=== PATIENT | female | born 1980 | race Caucasian/White ===

== ENCOUNTER 2017-01-27 17:34 | Emergency (ER) | payer OTHER ==
[2017-01-27 17:55] VITALS: BMI 27.7
[2017-01-27] MEDS ORDERED: Betamethasone Soluspan 30 mg/5mL Inj Susp IM ONE (19:00)
--- NOTE | 2017-01-28 08:52 | OBHP ---
Datetime: 01/27/2017 18:46 IP Adm Impression: , intrauterine IP Admit Plan: Observation/Evaluation Admit Comment, IP Provider: CC: "vaginal bleeding" HPI: 37 YO IUP 34.6 weeks (via LMP) with no sig PMH, presents to [facility] for vaginal bleeding. P er patient, she noticed some dark blood on her panty linear which prompted her to come to ED. Additio vee, she also noticed that the baby was not moving as well as she was previously, but that resolved soon after. +FM, -ROM, - contractions, some spotting noted. 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 Allergies: NKDA Medications: PNV PE: VS: stable, afebrile GEN: NAD Cardio: S1S2, no M/G/R Resp: clear vesicular sounds b/l Abdomen: gravid, NT, BS+ Ext: no edema, NT Cervix: 1cm dilated, baby is low. On speculum exam, white discharge is noted in the vaginal vault. monitor: HR: 130 with moderate variability; Category I. Assessment/Plan: 37 YO IUP 34.6 weeks (via LMP) with no sig PMH, presents to [facility] for spottin g. Pt is in NAD, VS stable, no contractions seen on monitor thus far. Continue to observe for signs o f contractions. - Monitoring -Observe and reassess Sylvia Lynn, PGY I OB[facility] ADDENDUM: pt seen _ examined by me. agree with above with following clarification cc: spotting of brownish blood. denies menstrual type bleeding, srom, cramps or ctxs. no coitus x _2wks i: threatened ptl p: d/w pt _ fob concern for ptd and betamethasone inject and indic's. pt declined betameth pt states she will f/u w/ dr donovan tomorrow and rediscuss betameth ptl precautions pelvic rest until term Pelvic Type - PN: Adequate Extremities - PN: Normal Abdomen - PN: Normal Back - PN: Not Done Breast - PN: Not Done Lungs - PN: Normal Heart - PN: Normal Thyroid - PN: Normal Neurologic - PN: Normal HEENT - PN: Normal General - PN: Normal FHR - Baseline A Provider: 130 Membranes, Provider: Intact Contraction Comments Provider: no Comments, ACOG Physical Exam: SSE: no blood in vagina; profuse yellow tinged nonodorous vag d/c +vaginal bleeding from speculum placement repeat exam no change @ 19:48 EGA AdmitDate IP: 34.6 IP Chief Complaint: Vaginal bleeding NICHD Variability Prov Fetus A: Moderate 6-25bpm NICHD Accel Fetus A IP Provider: 15X15 FHR Category Provider Fetus A: Category I NICHD Decel Fetus A IP Provider: None Dilatation, Provider: 1 Effacement, Provider: 60 Station, Provider: -3/technical report writer Genitourinary Exam: Normal DTRs - PN: Not Done
[2017-01-28 12:51] VITALS: BP 119/77; PULSE 81; O2SAT 98
== END 2017-01-27 19:58 | disposition home or self-care (01) ==
LOC: H.EROB2 17:34
DX: O47.03 False labor before 37 completed weeks of gestation, third trimester (principal); Z3A.34 34 weeks gestation of pregnancy; O26.853 Spotting complicating pregnancy, third trimester

== ENCOUNTER 2017-02-03 12:50 | Emergency (ER) | payer OTHER ==
[2017-02-03 13:43] VITALS: BMI 26.9
--- NOTE | 2017-02-03 15:18 | US ---
PROCEDURE: OB Pelvic Ultrasound HISTORY: Decrease movement COMPARISON: None available. FINDINGS: UTERUS: Gestational sac: Single intrauterine gestation. Heart rate: 142 bpm. Amniotic fluid index 18.94 centimeter. Date of delivery (Ultrasound estimated) : 03/04/2017 The breathing movement score is 2 the movement score is 2 the tones score is 2 and the amniotic fluid score is 2 with a total biophysical profile scoring of 8. The placenta seen at the anterior uterine wall. CERVIX: Closed. Long and closed. No cervical abnormality seen. RIGHT OVARY: Was not visualized LEFT OVARY: Was not visualized FREE FLUID: None. OTHER FINDINGS: None. IMPRESSION: biophysical profile scoring is 8. Amniotic fluid index is 18.9 centimeter.
--- NOTE | 2017-02-03 16:02 | OBHP ---
Datetime: 02/03/2017 13:49 IP Adm Impression: , intrauterine IP Admit Plan: Observation/Evaluation Admit Comment, IP Provider: CC: "Decrease FM" HPI: 37 YO IUP 35.6 weeks (via LMP) with no sig PMH, presents to [facility] for decrease FM. She no ticed the decrease FM in the last few weeks. Per pt, baby is not moving as well as she did previously , specially in the AM. She does endorse increase movement at night then at day. Pt was last seen in [facility] on 01/27/17 for VB. Pt followed up with Dr. Bush and was given PO flagyl for VB. Pt finished 6 day of abx and notes that the vaginal discharge has resolved. +FM, -ROM, - contractions, some no VB. 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 Allergies: NKDA Medications: PNV PE: VS: stable, afebrile GEN: NAD Cardio: S1S2, no M/G/R Resp: clear vesicular sounds b/l Abdomen: gravid, NT, BS+ Ext: no edema, NT Cervix: pt refused a cervical exam at this time monitor: 150 HR, moderate variability; Category I. No contractions noted. Assessment/Plan: 37 YO IUP 35.6 weeks (via LMP) with no sig PMH, presents to [facility] for decreas e FM. Pt is in NAD, VS stable, no contractions seen on monitor thus far. Continue to observe. -continue monitoring -follow up with [facility] -observe and reassess -discussed with pt about movement and keeping a kick count as advances Pt is seen and discussed with attending Dr. Beti Bailey, PGY I obh addendum: pt seen _ examined by me. agree with above assessmenta and plan with following additions. She reports good fm in evening and decreased fm in am. Pt states BV cx neg and verified by chart. She states d/c was very odorous and odor resolved with rx. She denies further episodes of vag blee ding o: zahida 18; vtx bpp 10/10 p: f/u in off thurs as sched'd as above. Pelvic Type - PN: Not Done Extremities - PN: Normal Abdomen - PN: Normal Back - PN: Not Done Breast - PN: Not Done Lungs - PN: Normal Heart - PN: Normal Thyroid - PN: Normal Neurologic - PN: Normal HEENT - PN: Normal General - PN: Normal FHR - Baseline A Provider: 150 IP Hx Assessment: The History has been Reviewed and is Current EGA AdmitDate IP: 35.6 Vital Signs Provider: Within Normal Limits IP Chief Complaint: Decreased movement NICHD Variability Prov Fetus A: Moderate 6-25bpm NICHD Accel Fetus A IP Provider: 15X15 FHR Category Provider Fetus A: Category I Genitourinary Exam: Not Done DTRs - PN: Normal
[2017-02-03 18:52] VITALS: BP 123/83; RESP 18; TEMP 98.5
== END 2017-02-03 14:35 | disposition home or self-care (01) ==
LOC: H.EROB 12:50 → H.EROB2 12:50
DX: O47.03 False labor before 37 completed weeks of gestation, third trimester (principal); Z3A.35 35 weeks gestation of pregnancy

== ENCOUNTER 2017-03-11 09:36 | Inpatient (IN) | payer OTHER ==
[2017-03-11] MEDS: Lactated Ringer's 1,000 ML IV SCH ×4 (10:00→16:57)
[2017-03-11 10:02] VITALS: BMI 27.8
--- NOTE | 2017-03-11 10:53 | OBADHP ---
Datetime: 03/11/2017 10:04 Admit Comment, IP Provider: 37yo G 1P0 IUP at 41w c/o ctx since 6:15am; no SROM; no VB; +FM...CTX q iiregualr but lasting 5m Prenatla care: CP: Dr Bush - chart rev'd Last sono for [facility] Feb 13 6lb 14oz PMH: denies PSH:denies PBOGYNH: G1 Allergy Amoxicillin PSOH; denies smoking ETOH drugs A; IUP at 40+w active labor AMA decliedn amnio PLAN: admit discussion with pt about labor, pain management, delivery and care plan rev'd Pelvic Type - PN: Adequate Extremities - PN: Normal Abdomen - PN: Normal Back - PN: Normal Breast - PN: Not Done Lungs - PN: Normal Heart - PN: Normal Thyroid - PN: Normal Neurologic - PN: Normal HEENT - PN: Normal General - PN: Normal Weight - Estimated: 9lb (Antelmo) Presentation-Admit: Vertex FHR - Baseline A Provider: 150 Amniotic Fluid Color, Provider: Clear Membranes, Provider: Ruptured Contraction Comments Provider: + Comments, ACOG Physical Exam: ROS: General: no weakness; no fatigue HEENT: no RAMIREZ; no visual dist CV: no palpitations; no no CP GI: no N/V no diarhea : no F/U/D MS: No joint pain Pool Provider: Positive IP Hx Assessment: The History has been Reviewed and is Current IP Chief Complaint: Uterine contractions; Suspected ruptured membranes NICHD Variability Prov Fetus A: Moderate 6-25bpm NICHD Accel Fetus A IP Provider: 15X15 FHR Category Provider Fetus A: Category I NICHD Decel Fetus A IP Provider: None Dilatation, Provider: 6-7 Effacement, Provider: 100 Station, Provider: -1 Genitourinary Exam: Normal DTRs - PN: Normal EGA AdmitDate IP: 41.0 IP Adm Impression: Term, intrauterine ; Active labor; Ruptured Membranes IP Admit Plan: Admit to unit; Initiate labor protocol Datetime: 02/03/2017 13:49 Vital Signs Provider: Within Normal Limits
[2017-03-11 11:02] LABS: BASO % 0.4 % (0.0-2.0); EOS % 0.4 % (0.0-4.0); HEMATOCRIT 37.6 % (34.0-47.0); LYMPH # 1.6 K/uL (1.0-4.3); LYMPH % 17.2 % (20.0-40.0); MEAN CELL VOLUME 88.6 fl (81.0-99.0); MEAN CORPUSCULAR HEMOGLOBIN 29.5 pg (27.0-31.0); MEAN CORPUSCULAR HGB CONC 33.3 g/dL (33.0-37.0); MEAN PLATELET VOLUME 8.2 fl (7.2-11.7); MONO # 0.6 K/uL (0.0-0.8); MONO % 6.4 % (0.0-10.0); NEUT # 7.2 K/uL (1.8-7.0); NEUT % 75.6 % (50.0-75.0); RED CELL DISTRIBUTION WIDTH 13.5 % (11.5-14.5); WHITE BLOOD COUNT 9.6 K/uL (4.8-10.8)
[2017-03-11] MEDS ORDERED: Oxytocin 30 units/LR 500ML 30 U/500 ML BAG IV ONE ×2 (11:34→16:52)
--- NOTE | 2017-03-11 13:11 | OBPN ---
Datetime: 03/11/2017 13:00 IP Progress Impression: Reassuring heart rate; Reactive non-stress test; Rupture of membranes IP Informed Consent Obtain: Vaginal Delivery; Risks, Benefits and Alternatives Discussed IP Progress Plan: Anesthesia consult FHR - Baseline A Provider: 120 Presentation-Admit: Vertex IP Progress Note Comment: She feels more CTX pain; unbearable...she has been pushing on and off for <1h. Difficult exam from moving around secondary to pain. Second stage of labor PLAN: will speak with anesthesia for poss epidural for pain relief NICHD Accel Fetus A IP Provider: 15X15 FHR Category Provider Fetus A: Category I NICHD Variability Prov Fetus A: Moderate 6-25bpm NICHD Decel Fetus A IP Provider: None Datetime: 03/11/2017 11:55 Dilatation, Provider: 10 Effacement, Provider: 100 Station, Provider: 0 Datetime: 03/11/2017 10:04 Pool Provider: Positive Membranes, Provider: Ruptured Amniotic Fluid Color, Provider: Clear Contraction Comments Provider: + Weight - Estimated: 9lb (Antelmo) Datetime: 02/03/2017 13:49 Vital Signs Provider: Within Normal Limits
[2017-03-11] MEDS ORDERED: Lidocaine 2% PF (10 ml) Amp ONE ×2 (13:12→18:21)
[2017-03-11] MEDS ORDERED: Fentanyl/Bupivacaine HCl 0 ML EPI ONE (13:12)
--- NOTE | 2017-03-11 16:25 | OBPN ---
Datetime: 03/11/2017 16:15 IP Progress Impression: Normal progression of labor; Reassuring heart rate IP Informed Consent Obtain: Vaginal Delivery; Risks, Benefits and Alternatives Discussed IP Progress Plan: Anesthesia consult Pool Provider: Positive Membranes, Provider: Ruptured IP Progress Note Comment: Notifiied that she is requesting another epidural dose Second stage of labor PLAN: disucssed continued pushing (pushing for 1-1.5h only)...she would like epidural dos enad try to push again when more comfortable NICHD Accel Fetus A IP Provider: 15X15 FHR Category Provider Fetus A: Category II NICHD Variability Prov Fetus A: Moderate 6-25bpm Dilatation, Provider: 10 Effacement, Provider: 100 Station, Provider: 0
[2017-03-11 17:13] VITALS: TEMP 98.4; O2SAT 99
--- NOTE | 2017-03-11 17:41 | OBPN ---
Datetime: 03/11/2017 17:35 IP Progress Impression: Normal progression of labor; Reassuring heart rate; Rupture of membran es IP Informed Consent Obtain: Vaginal Delivery; Risks, Benefits and Alternatives Discussed IP Progress Plan: Continue present management; Augmentation Pool Provider: Positive Membranes, Provider: Ruptured FHR - Baseline A Provider: 135 IP Fetus A Comments: Variable decels with pushing Presentation-Admit: Vertex IP Progress Note Comment: Notified that she requested another epidural dosing...thrid one. She was pushing for 2h...CTX noted to be 3-5m...Pitocin started for augmentation of labor SVE fully caput noted A: Second stage of labor PLAN: discussion with pt about labor progress, augmentatoin, FHR tracing re-assuring, but she want s to keep pushing (will try without top off dose)...monitor progress NICHD Accel Fetus A IP Provider: 15X15 FHR Category Provider Fetus A: Category II NICHD Variability Prov Fetus A: Moderate 6-25bpm Dilatation, Provider: 10 Effacement, Provider: 100 Station, Provider: 1 NICHD Decel Fetus A IP Provider: Variable
[2017-03-11] MEDS ORDERED: Clindamycin 600 MG in Sodium Chloride 0.9% 100 ML IVPB ONE (18:25)
--- NOTE | 2017-03-11 18:39 | OBPN ---
Datetime: 03/11/2017 18:35 IP Progress Impression: Arrest of dilatation/descent IP Informed Consent Obtain: Section Delivery; Risks, Benefits and Alternatives Discussed IP Progress Plan: Deliver- Section Contraction Comments Provider: 2-3m FHR - Baseline A Provider: 140 Presentation-Admit: Vertex IP Progress Note Comment: Pushing total 3hrs/Pitocin at 5mi/h A: Failure of descent PLAN: condition explained to patient. She understood. Will prep for C/S ....Informed consent obta ined NICHD Accel Fetus A IP Provider: 15X15 FHR Category Provider Fetus A: Category I NICHD Variability Prov Fetus A: Moderate 6-25bpm Dilatation, Provider: 10 Effacement, Provider: 100 Station, Provider: 1 NICHD Decel Fetus A IP Provider: None
[2017-03-11] MEDS ORDERED: ePHEDrine 50 mg/ml Inj ONE (20:26)
[2017-03-11] MEDS ORDERED: Oxycodone/Acetaminophen 5/325 mg Tab PO PRN ×2 (21:06)
[2017-03-11] MEDS ORDERED: Simethicone 80 mg Chewtab PO SCH (22:00)
--- NOTE | 2017-03-12 00:24 | OBDS ---
DELIVERY PERSONNEL Delivery Doctor: Daljit Bush DO Detective Supervisor: Ma. Muna Mendez RN Anesthesiologist: Tk Resident: Bhupinder Freitas MATERNAL INFORMATION Provider Comments: Pre Op Dx: IUP at 41w / failure of descent Post Op Dx: same Procedure: Primary LTCS via Pfannenstiel incision Surgeon: Dr Eleazar Olivares PGY2 Anesth: Dr Frey Anesth: spinal Findings: Live delivered from ceph presentation 9,9 Clear AF Placenta delivered intact manually ovaries and fallopian tubes WNL EBL 800cc She remained stable All equipment, sponges and needles accounted for LABOR SUMMARY EDC: 03/04/2017 00:00 No. Babies in Womb: 1 Attempted: No Labor Anesthesia: Epidural LABOR INFORMATION Reason for Induction: Not Applicable Onset of Labor: 03/11/2017 06:15 Complete Dilatation: 03/11/2017 12:00 Group B Beta Strep: Negative MEMBRANES Membranes Rupture Method: Spontaneous Rupture of Membranes: 03/11/2017 10:00 Length of Rupture (hrs): 10.57 Amniotic Fluid Color: Clear Amniotic Fluid Amount: Small Amniotic Fluid Odor: Normal STAGES OF LABOR Stage 1 hrs: 5 Stage 1 min: 45 Stage 2 hrs: 8 Stage 2 min: 34 Stage 3 hrs: 0 Stage 3 min: 1 Total Time in Labor hrs: 14 Total Time in Labor min: 20 CSECTION DELIVERY Primary Indication: Failure of Descent Labor: Labor CSection Incision: Lower Uterine Transverse BABY A INFORMATION Delivery Date/Time: 03/11/2017 20:34 Method of Delivery: Born in Route : No : N/A SHOULDER DYSTOCIA BABY A Infant Delivery Date/Time: 03/11/2017 20:34 PRESENTATION/POSITION BABY A Presentation: Cephalic PLACENTA INFORMATION BABY A Placenta Delivery Time : 03/11/2017 20:35 Placenta Method of Delivery: Expressed Placenta Status: Delivered SCORES BABY A Heart Rate 1 min: >100 bpm Resp Effort 1 min: Good Cry Reflex Irritability 1 min: Cough or Sneeze or Pulls Away Muscle Tone 1 min: Active Motion Color 1 min: Body [place], Extremities Blue Resuscitation Effort 1 min: N/A SCORE 1 MIN: 9 Heart Rate 5 min: >100 bpm Resp Effort 5 min: Good Cry Reflex Irritability 5 min: Cough or Sneeze or Pulls Away Muscle Tone 5 min: Active Motion Color 5 min: Body [place], Extremities Blue Resuscitation Effort 5 min: N/A SCORE 5 MIN: 9 INFORMATION BABY A Gestational Age at Delivery: 41.0 Gestational Status: Term Infant Outcome : Liveborn Infant Condition : Stable Infant Sex: Female IDENTIFICATION/MEDS BABY A ID Band Number: [id number] WEIGHT/LENGTH BABY A Infant Birthweight (gms): 3955 Weight (lb): 8 Infant Weight (oz): 11 CORD INFORMATION BABY A No. Cord Vessels: 3 Nuchal Cord : N/A Cord Blood Taken: Yes Suction: Mouth; Nose
[2017-03-12] MEDS ORDERED: Oxycodone/Acetaminophen 5/325 mg Tab PO PRN (00:50)
[2017-03-12] MEDS ORDERED: Lactated Ringer's 1,000 ML IV SCH (00:50)
[2017-03-12] MEDS: Simethicone 80 mg Chewtab PO SCH ×4 (03:55→22:19)
[2017-03-12 06:30] LABS: HEMATOCRIT 33.4 % (34.0-47.0); MEAN CELL VOLUME 88.2 fl (81.0-99.0); MEAN CORPUSCULAR HEMOGLOBIN 29.4 pg (27.0-31.0); MEAN CORPUSCULAR HGB CONC 33.3 g/dL (33.0-37.0); WHITE BLOOD COUNT 12.8 K/uL (4.8-10.8)
--- NOTE | 2017-03-12 09:17 | OBPPN ---
Datetime: 03/12/2017 09:14 PP Pain Prov: Within normal limits PP Nausea Prov: Denies PP Flatus Prov: No PP BM Prov: No PP Breasts Prov: Normal PP Heart Prov: Normal PP Lungs Prov: Normal PP Abdomen/Uterus Prov: Normal PP Lochia Prov: Normal PP Vulva/Perineum Prov: Normal PP CVA Tenderness Prov: Normal PP Extremities Prov: Normal PP C/S Incision Prov: Normal PP Impression Prov: Normal progression PP Plan Prov: Continue present management PP Progress Note Prov: She feels fine. No incisional pain. Tolerated clear fluid A: S/P C/Section day 1 PLAN cont postop care Vital Signs Provider PP: Reviewed
[2017-03-12] MEDS: Oxycodone/Acetaminophen 5/325 mg Tab PO PRN (12:50)
[2017-03-13] MEDS: Oxycodone/Acetaminophen 5/325 mg Tab PO PRN ×2 (04:11→18:19)
[2017-03-13] MEDS: Simethicone 80 mg Chewtab PO SCH ×4 (04:15→22:03)
--- NOTE | 2017-03-13 08:42 | OBPPN ---
Datetime: 03/13/2017 08:30 PP Nausea Prov: Denies PP Flatus Prov: Yes PP BM Prov: No PP Abdomen/Uterus Prov: Normal PP Lochia Prov: Normal PP Vulva/Perineum Prov: Not Done PP Extremities Prov: Normal PP C/S Incision Prov: Normal PP Progress Prov: Normal PP Impression Prov: Normal progression PP Plan Prov: Continue present management PP Progress Note Prov: POD 2 s/p primary LTCS for failure of descent, breast feeding, doing well Continue current management Vital Signs Provider PP: Reviewed
--- NOTE | 2017-03-13 19:33 | OP ---
PROCEDURE DATE: 03/11/2017 PREOPERATIVE DIAGNOSES: 1. Intrauterine at 41 weeks' gestation. 2. Failure to descend. POSTOPERATIVE DIAGNOSES: 1. Intrauterine at 41 weeks' gestation. 2. Failure to descend. PROCEDURE: Primary low transverse section via Pfannenstiel incision. SURGEON: Casey Bush DO AUTOCAD ELECTRICAL DESIGNER: Dr. Herb Montero. (Dr. Herb Montero is a board certified PIPELINES LABORER physician, who happened to be in labor and delivery. His assistance was necessary and vital for this difficult case. He was there from the time of incision to delivery of the infant to the closure of the skin). SECOND AUTOCAD ELECTRICAL DESIGNER: Dr. Donahue, PGY2. TYPE OF ANESTHESIA: Spinal. ANESTHESIA ADMINISTERED BY: Dr. Frey. OPERATIVE FINDINGS: Live infant delivered from cephalic presentation using Kiwi vacuum x1, less than 30 seconds one time, no pop offs. score 9 and 9 given at one and five minutes respectively. Clear amniotic fluid noted. Placenta was delivered and intact manually. Ovaries and tubes appeared to be within normal limits grossly. Estimated blood loss 800 mL. She remained hemodynamically stable throughout the procedure. All equipments, sponges, and needles accounted for. DESCRIPTION OF PROCEDURE: The patient was brought to the operating room. She was fully dilated, had a Hyatt catheter in place. Compression boots on both lower extremities. She was placed in supine position after successful spinal anesthesia by Dr. Frey. She was then draped and prepped in the usual sterile manner. Once adequate anesthesia was obtained, a Pfannenstiel incision was made using a scalpel. This was taken down to underlying fascia using electrocautery. Fascia was nicked in the midline and extended bilaterally using electrocautery. Inferior aspect of the fascia was grasped using 2 Ezequiel clamps, tented up, and the rectus muscle was both bluntly and sharply dissected. The same was done with superior aspect of the fascia. In the midline superiorly, rectus muscle was grasped using 2 Allis clamps, tented up and the midline was and incised using scalpel. Once we were able to identify the peritoneum, this was tented up using 2 Mile clamps. This was incised using Metzenbaum scissors. This incision was then extended superiorly and inferiorly with direct visualization of the bladder and intestines. Bladder blade was then inserted. A bladder flap was created by incising the peritoneum and the uterus way above the bladder line and then extending it bilaterally using Metzenbaum scissors. A bladder flap was created digitally. Bladder blade was then inserted behind the bladder flap. A low transverse incision was made through lower uterine segment. Upon entering the uterus, clear amniotic fluid was noted. This incision was then extended bilaterally using bandage scissors. The was then delivered. This was done first by attempting to deliver the baby's head. There was some tissue distortion noted. The incision on the skin was extended bilaterally using a scalpel as well as incision on the rectus muscle using bandage scissors. Still some difficulty of the delivery of the head was noted. Decision was made to use a Kiwi vacuum and this was done x1, no pop offs, less than 30 seconds and slow controlled motion. Once the infant's head was delivered, the Kiwi was removed. The remainder of the infant was then delivered as atraumatically as possible. was crying spontaneously. Bulb suctioned nasopharyngeally. Cord was clamped and cut. Infant was handed to the research anthropologist in attendance. Placenta was then delivered manually. Uterus was then exteriorized, cleared of debris and clots. The edges of the lower uterine segment were grasped and identified using 2 Mile clamps and 2 T-clamps. Good contraction of the uterus was noted. 0 Vicryl suture was used to close the first layer of the uterus in an interlocking fashion. Second layer of the uterus was closed using 0 Vicryl suture in an interlocking fashion imbricating the first layer. Good hemostasis was assured. Good contraction of the uterus was noted. Ovaries and tubes appeared to be within normal limits grossly. Posterior cul-de-sac was noted to be cleared of debris and clots. The uterus was placed back into peritoneal cavity. Copious irrigation was performed. Lower uterine segment was noted to have good hemostasis. No active bleeding noted. All equipment was removed and accounted for . 0 Vicryl suture was used to approximate the peritoneum in a running fashion. Rectus muscle was closed using 0 Vicryl suture where incision had been made bilaterally using the bandage scissors. Good hemostasis was assured. 0 Vicryl suture was used to approximate the fascia layer in a running fashion. Irrigation was performed. Hemostasis was assured using electrocautery. 2-0 plain suture was used to approximate the subcuticular layer x3. 3-0 Vicryl suture was used to approximate the skin. Dermabond was applied. Steri-Strips and pressure bandage placed. All equipments, sponges, and needles accounted for. Casey Buhs DO
[2017-03-14] MEDS: Simethicone 80 mg Chewtab PO SCH ×2 (04:39→10:02)
--- NOTE | 2017-03-14 09:13 | OBPPN ---
Datetime: 03/14/2017 09:11 PP Pain Prov: Within normal limits PP Nausea Prov: Denies PP Flatus Prov: Yes PP BM Prov: No PP Breasts Prov: Normal PP Heart Prov: Normal PP Lungs Prov: Normal PP Abdomen/Uterus Prov: Normal PP Lochia Prov: Normal PP Vulva/Perineum Prov: Normal PP CVA Tenderness Prov: Normal PP Extremities Prov: Normal PP C/S Incision Prov: Normal PP Progress Prov: Normal PP Impression Prov: Normal progression PP Plan Prov: Discharge PP Progress Note Prov: She feels fine. No BM A S/P C/Sectoin day 3 PLAN: discharge home folow up in 1-2w Vital Signs Provider PP: Reviewed; Within Normal Limits
[2017-03-14 18:05] VITALS: BP 138/89; PULSE 79; RESP 18
== END 2017-03-14 13:25 | disposition home or self-care (01) | DRG 766 ==
LOC: H.EROB2 09:36 → H.L&D 10:02 → H.OB/GYN 03-12 00:20
PROVIDERS: ADMIT Obstetrics & Gynecology; ATTEND Obstetrics & Gynecology
PROC: 4A1HXCZ Monitoring of Products of Conception, Cardiac Rate, External Approach (ICD-10-PCS; principal; 2017-03-11)
PROC: 10D00Z1 Extraction of Products of Conception, Low, Open Approach (ICD-10-PCS; 2017-03-11)
DX: O48.0 Post-term pregnancy (principal); O32.4XX0 Maternal care for high head at term, not applicable or unspecified; Z37.0 Single live birth; O62.0 Primary inadequate contractions; Z3A.41 41 weeks gestation of pregnancy